=== PATIENT | male | born 1960 | race Caucasian/White ===

== ENCOUNTER → 2021-03-09 | Outpatient (CLI) | payer MEDICARE, OTHER ==
--- NOTE | 2021-03-09 11:46 | REPVR ---
PROCEDURE INFORMATION: Exam: MR Lumbar Spine Without Contrast Exam date and time: 03/09/2021 10:31 AM Age: 60 years old Clinical indication: Low back pain; Additional info: Lumbar spondylosis TECHNIQUE: Imaging protocol: Multiplanar magnetic resonance images of the lumbar spine without intravenous contrast. COMPARISON: MRI L-SPINE 04/10/2019 5:14 PM The report from the previous exam was not immediately available. FINDINGS: Vertebrae: No acute compression fracture is seen. Bone marrow signal is within normal limits. Spinal cord: The conus medullaris is low lying, terminating at the L2-L3 level. There is no evidence of arachnoiditis or cauda equina compression. L1-L2: There is mild diffuse circumferential disc bulging and facet arthropathy. There is no significant spinal canal or neural foraminal stenosis. L2-L3: There is moderate facet arthropathy. There is no spinal canal or neural foraminal stenosis. L3-L4: There is moderate diffuse circumferential disc bulging with a superimposed broad-based left extraforaminal disc protrusion. Moderate facet arthropathy and thickening of the ligamentum flavum is also present. This is causing mild spinal canal stenosis and mild left neural foraminal narrowing. L4-L5: There is mild diffuse circumferential disc bulging, facet arthropathy, and thickening of the ligamentum flavum. This is causing mild spinal canal stenosis and mild bilateral neural foraminal narrowing. L5-S1: There is moderate diffuse circumferential disc bulging and facet arthropathy. This is causing minimal spinal canal stenosis, moderate right neural foraminal narrowing, and minimal left neural foraminal narrowing. The previously noted central and left paracentral disc protrusion is no longer present. Soft tissues: Unremarkable. IMPRESSION: Degenerative changes of the lumbar spine as discussed above Electronically signed by: Nilesh Irvin On 03/09/2021 11:45:45 AM
== END ==
LOC: M PLAIMG 09:24
PROVIDERS: ATTEND Physical Medicine & Rehabilitation
DX: M47.816 Spondylosis without myelopathy or radiculopathy, lumbar region (principal)

== ENCOUNTER → 2021-03-12 | Outpatient (CLI) | payer MEDICARE, OTHER ==
--- NOTE | 2021-03-12 19:05 | REPVR ---
PROCEDURE INFORMATION: Exam: MR Pelvis Without Contrast, Sacral plexus Exam date and time: 03/12/2021 12:03 PM Age: 60 years old Clinical indication: Pelvic pain; Additional info: Other spondylosis lumbar region TECHNIQUE: Imaging protocol: Magnetic resonance images of the pelvis without intravenous contrast. Exam focused on the sacral plexus. COMPARISON: MRI-Spine, L.S. without con 03/09/2021 9:44 AM FINDINGS: Bladder: Bladder wall is trabeculated, incompletely evaluated. There is indentation at the bladder base by the enlarged prostate, partially included. Reproductive: The prostate is markedly enlarged and heterogeneous, incompletely evaluated as this is only partially included. Nerves: Sacral plexus is unremarkable. Bones/joints: L4-L5: Mild broad-based disc bulge along with degenerative facet disease and ligamentum flavum hypertrophy results in mild central canal and mild right greater than left neural foraminal narrowing. L5-S1 coil Moderate broad-based disc bulge, degenerative facet disease, and ligamentum flavum hypertrophy causes minimal central canal narrowing. There is also moderate right and minimal left neural foraminal narrowing. No acute fracture. No sacral neural foraminal narrowing. Mild degenerative change at the sacroiliac joints, more pronounced on the right where there is edema in the sacrum. No diastasis at the sacroiliac joints. Soft tissues: Unremarkable. IMPRESSION: 1. Degenerative changes in the lower lumbar spine. 2. Mild degenerative change at the sacroiliac joints, right greater than left. 3. Markedly enlarged and heterogeneous prostate indenting the bladder base, only partially included and incompletely evaluated, with trabeculation of the bladder wall suggesting a component of chronic bladder outlet obstruction. Electronically signed by: Nory Jordan On 03/12/2021 19:05:34 PM
== END ==
LOC: M PLAIMG 10:52
PROVIDERS: ATTEND Physical Medicine & Rehabilitation
DX: M47.896 Other spondylosis, lumbar region (principal)

== ENCOUNTER → 2021-12-03 | Outpatient (CLI) | payer MEDICARE | LOC: M PAIN 09:00 | PROVIDERS: ATTEND Nurse Practitioner Family | DX: M51.16 Intervertebral disc disorders with radiculopathy, lumbar region (principal); G47.30 Sleep apnea, unspecified; I10 Essential (primary) hypertension; F17.210 Nicotine dependence, cigarettes, uncomplicated; Z88.0 Allergy status to penicillin; E66.01 Morbid (severe) obesity due to excess calories; Z68.41 Body mass index [BMI] 40.0-44.9, adult; Z79.899 Other long term (current) drug therapy ==

== ENCOUNTER → 2022-04-06 | Outpatient (CLI) | payer MEDICARE ==
[~2022-04-06] MED LIST: ISOVUE-M 300 61% 15ML VIAL As Ordered ONE; LIDOCAINE 1% SDV 30ML VIAL As Ordered ONE; NORCO, ANEXSIA 5/325MG TABLET (HYDROcodone/ACETAMINOPHEN) As Ordered ONE; diazePAM 5MG TABLET As Ordered ONE; methylPREDNISolone SUSP 40MG/ML 1ML VIAL (DEPO MEDROL) As Ordered ONE
== END ==
LOC: M PAIN 14:30
PROVIDERS: ATTEND Anesthesiology
DX: M51.16 Intervertebral disc disorders with radiculopathy, lumbar region (principal); G89.29 Other chronic pain; G47.30 Sleep apnea, unspecified; I10 Essential (primary) hypertension; F17.210 Nicotine dependence, cigarettes, uncomplicated; Z88.0 Allergy status to penicillin; E66.01 Morbid (severe) obesity due to excess calories; Z68.41 Body mass index [BMI] 40.0-44.9, adult; Z79.899 Other long term (current) drug therapy
CPT/HCPCS: 62323; J1030; Q9967

== ENCOUNTER → 2022-06-02 | Outpatient (CLI) | payer OTHER | LOC: M TMPAIN 09:15 → M PAIN 09:15 | PROVIDERS: ATTEND Anesthesiology | DX: M51.16 Intervertebral disc disorders with radiculopathy, lumbar region (principal); M48.062 Spinal stenosis, lumbar region with neurogenic claudication; G89.29 Other chronic pain; G47.30 Sleep apnea, unspecified; I10 Essential (primary) hypertension; F17.210 Nicotine dependence, cigarettes, uncomplicated; Z88.0 Allergy status to penicillin; Z79.899 Other long term (current) drug therapy ==

== ENCOUNTER → 2022-07-09 | Outpatient (CLI) | payer OTHER | LOC: M LABSMTC 11:05 | PROVIDERS: ATTEND Anesthesiology | DX: Z01.812 Encounter for preprocedural laboratory examination (principal) ==

== ENCOUNTER → 2022-07-09 | Outpatient (CLI) | payer OTHER ==
[~2022-07-09] MED LIST changes: +BUPIVACAINE HCL 0.25% 30ML VIAL As Ordered ONE; -methylPREDNISolone SUSP 40MG/ML 1ML VIAL (DEPO MEDROL) As Ordered ONE
== END ==
LOC: M PAIN 13:00
PROVIDERS: ATTEND Anesthesiology
DX: M51.16 Intervertebral disc disorders with radiculopathy, lumbar region (principal); G89.29 Other chronic pain; G47.30 Sleep apnea, unspecified; I10 Essential (primary) hypertension; F17.210 Nicotine dependence, cigarettes, uncomplicated; Z88.0 Allergy status to penicillin; E66.01 Morbid (severe) obesity due to excess calories; Z68.42 Body mass index [BMI] 45.0-49.9, adult; Z79.899 Other long term (current) drug therapy; Z20.822 Contact with and (suspected) exposure to COVID-19
CPT/HCPCS: 64483; 64484; 87635; J1100; Q9967

== ENCOUNTER → 2022-08-27 | Outpatient (CLI) | payer OTHER | LOC: M PAIN 13:45 | PROVIDERS: ATTEND Nurse Practitioner Family | DX: M51.16 Intervertebral disc disorders with radiculopathy, lumbar region (principal); G89.29 Other chronic pain; G47.30 Sleep apnea, unspecified; I10 Essential (primary) hypertension; F17.210 Nicotine dependence, cigarettes, uncomplicated; Z88.0 Allergy status to penicillin; E66.01 Morbid (severe) obesity due to excess calories; Z68.42 Body mass index [BMI] 45.0-49.9, adult; Z79.899 Other long term (current) drug therapy ==

== ENCOUNTER → 2022-10-21 | Outpatient (CLI) | payer OTHER | LOC: M PAIN 15:00 | PROVIDERS: ATTEND Anesthesiology | DX: M51.16 Intervertebral disc disorders with radiculopathy, lumbar region (principal); M48.062 Spinal stenosis, lumbar region with neurogenic claudication; G89.29 Other chronic pain; G47.30 Sleep apnea, unspecified; I10 Essential (primary) hypertension; F17.210 Nicotine dependence, cigarettes, uncomplicated; Z88.0 Allergy status to penicillin; E66.01 Morbid (severe) obesity due to excess calories; Z68.42 Body mass index [BMI] 45.0-49.9, adult; Z79.899 Other long term (current) drug therapy ==